=== PATIENT | female | born 1990 | race Hispanic/Latino ===

== ENCOUNTER 2017-10-13 17:48 | Observation (INO) | payer BC, OTHER ==
[~2017-10-13] VITALS: Ht 182.9 cm; Wt 72.2 kg
[~2017-10-13 17:48] MED LIST: ALPRAZOLAM0.5 MG PO; AMBIEN10 MG PO; AMITRIPTYLINE H25 MG PO; BELSOMRA PO; BENTYL20 MG PO; BUPROPION XL150 MG PO; Buspar PO; CIPROFLOXACIN500 M1 PO; CLONIDINE HCL0.1 MG PO; CLONIDINE HCL0.3 MG PO; DOMPERIDONE PO; DOMPERIDONE1 GM PO; FENTANYL1 EAC1 TOP; FLUCONAZOLE150 MG PO; HYDROCODON-ACE1 EA12 PO; K DUR10 MEQ PO; LEXAPRO10 MG PO; LINZESS PO; MAGNESIUM CITR296 ML PO; MICROGESTIN FE1 EAC1; MICROGESTIN FE1 EAC1 PO; MIRALAX17 GM PO; NUCYNTA ER50 MG PO; OXYCODONE-ACET1 EAC1 PO; PAXIL20 MG PO; PERCOCET 10-321 EACH PO; PHENERGAN SUPP25 MG PR; PHENERGAN25 M3 PO; PROMETHAZINE HC25 M1 PO; PYLERA CAPSULE1 EACH PO; TRAZODONE HCL50 MG PO; WELLBUTRIN SR150 MG PO; XANAX0.5 MG PO; Z.0.HYDROCODON-ACE1 PO; Z.0.NEXIUM40 MG PO; Z.0.PANTOPRAZOLE SO4 PO; Z.0.PROMETHAZINE HC2 PO; ZOFRAN ODT4 MG PO; ZOFRAN8 MG PO
--- OUTSIDE RECORDS SUMMARY | 2017-10-13 17:53 | XMS REPORT | Clinical Summary ---
Author Author [facility] Organization [facility] Address Unknown Phone Unavailable Care Team Providers Care Heavy Equipment Operator Apprentice Name Role Phone Arnie De La Rosa MD PCP Allergies Active Allergy Reactions Severity Noted Date Comments Metoclopramide Hcl Other (See Comments) 01/05/2016 Tics Current Medications Prescription Sig. Disp. Refills Start End Date Status Date ALPRAZolam (XANAX) 0.5 MG Take 0.5 mg by mouth 2 0 12/26/19 Active tablet (two) times a day. 16 traZODone (DESYREL) 50 MG Take 50 mg by mouth 0 11/21/19 Active tablet daily. 16 zolpidem (AMBIEN) 10 mg Take 10 mg by mouth Active tablet nightly as needed for sleep. promethazine (PHENERGAN) Insert 25 mg into the Active 25 MG suppository rectum every 6 (six) hours as needed for nausea or vomiting. promethazine (PHENERGAN) TAKE 1 TABLET BY MOUTH 30 tablet 0 11/12/19 Active 25 MG tabletIndications: EVERY 4 HOURS NEEDED 17 Gastroparesis FOR NAUSEA OR VOMITING clonIDINE (CATAPRES) 0.1 Take 1 tablet (0.1 mg 60 tablet 11 01/12/20 01/12/20 MG tablet total) by mouth 2 (two) 16 17 times a day. promethazine (PHENERGAN) TAKE 1 TABLET BY MOUTH 30 tablet 0 10/19/19 11/12/19 Discontin 25 MG tabletIndications: EVERY 4 HOURS NEEDED 17 17 ued Gastroparesis FOR NAUSEA OR VOMITING Active Problems Problem Noted Date Gastroparesis 01/12/2016 Clostridium difficile diarrhea 01/12/2016 Depression (emotion) 01/12/2016 Back pain 01/12/2016 Epigastric pain 01/12/2016 Encounters Date Type Specialty Care Team Description 11/11/2016 Refill Gastroenterology Cheikh Gurrola MD Gastroparesis after 10/12/2016 Social History Tobacco Use Types Packs/Day Years Used Date Never Smoker Alcohol Use Drinks/Week oz/Week Comments No Sex Assigned at Date Recorded Not on file Last Filed Vital Signs Not on file Plan of Treatment Health Maintenance Due Date Last Done Comments PAP SMEAR 2013 INFLUENZA VACCINE 01/18/2018 Results Not on fileafter 10/12/2016 Insurance Payer Benefit Subscriber ID Type Phone Address Plan / Group BCBS BCBS xxxxxxxxxxxx PPO CHOICE PPO/[employer] PPO
--- OUTSIDE RECORDS SUMMARY | 2017-10-13 17:59 | XMS REPORT | Clinical Summary ---
Author Author [facility] Address Unknown Phone Unavailable Care Team Providers Care Cleaning Professional Name Role Phone Arnie De La Rosa [...]
[2017-10-13] MEDS ORDERED: ONDANSETRON HCL INJ 2 MG/ML VIAL IV PRN (18:30)
--- OUTSIDE RECORDS SUMMARY | 2017-10-13 18:42 | XMS REPORT | Clinical Summary ---
Author Author [facility] Address Unknown Phone Unavailable Care Team Providers Care Public Speaking Teacher Name Role Phone Arnie De La Rosa [...]
[2017-10-13 19:35] VITALS: BP 113/55
[2017-10-13] MEDS: SODIUM CHLORIDE 0.9% 1000ML 1,000 ML IV SCH (19:50)
[2017-10-13] MEDS: ONDANSETRON HCL 4 MG ORAL DISINTEGRATING TAB PO PRN (19:56)
[2017-10-13] MEDS: MORPHINE SULFATE 2 MG/ML SYR IV PRN (19:56)
[2017-10-13 22:00] VITALS: BP 113/55
[2017-10-14] VITALS (9 sets, daily range): BP systolic 88–139; BP diastolic 53–81
[2017-10-14] MEDS: MORPHINE SULFATE 2 MG/ML SYR IV PRN ×6 (00:13→21:35)
[2017-10-14] MEDS: ONDANSETRON HCL 4 MG ORAL DISINTEGRATING TAB PO PRN ×2 (00:13→04:25)
--- NOTE | 2017-10-14 00:38 | Diagnostic Imaging Report ---
EXAM: ABDOMEN-1VIEW (KUB) DATE: 10/13/2017 6:25 PM Time stamp on exam: 2308 hours INDICATION: Abdominal pain COMPARISON: None FINDINGS: LINES/TUBES: Jejunostomy tube is visualized overlying the region of the mid abdomen. There is a defibrillator/baclofen pump overlying the right lower abdomen with distal leads at the level of the left T12 vertebral body level. BOWEL PATTERN: No evidence for obstruction. SOFT TISSUES: Cholecystectomy clips are present. LUNG BASES: The lung bases are clear BONES: No acute findings. IMPRESSION: Nonobstructive bowel gas pattern. Signed by: Dr. Shaka Perez M.D. on 10/14/2017 12:34 AM
[2017-10-14] MEDS: SODIUM CHLORIDE 0.9% 1000ML 1,000 ML IV SCH (04:46)
[2017-10-14 05:13] LABS: BASOPHILS % 0.2 % (0.0-1.0); EOSINOPHILS # (AUTO) 0.1 (0.0-0.4); EOSINOPHILS % 1.1 % (0.0-6.0); HEMATOCRIT 31.2 % (34.2-44.1); HEMOGLOBIN 9.8 g/dL (12.0-16.0); LYMPHOCYTES # (AUTO) 3.7 (1.0-3.2); LYMPHOCYTES % 40.3 % (18.0-39.1); MEAN CORPUSCULAR HEMOGLOBIN 22.6 pg (28-32); MEAN CORPUSCULAR HGB CONC 31.4 g/dL (31-35); MEAN CORPUSCULAR VOLUME 71.9 fL (81-99); MONOCYTES # (AUTO) 0.5 (0.2-0.8); MONOCYTES % 5.9 % (4.4-11.3); NEUTROPHILS # (AUTO) 4.8 (2.1-6.9); NEUTROPHILS % 52.3 % (38.7-80.0); PLATELET COUNT 341 x10e3/uL (140-360); RED BLOOD COUNT 4.34 x10e6/uL (3.6-5.1); RED CELL DISTRIBUTION WIDTH 15.9 % (11.7-14.4)
[2017-10-14 05:28] LABS: ALANINE AMINOTRANSFERASE 21 IU/L (0-55); ALBUMIN 3.5 g/dL (3.5-5.0); ALBUMIN/GLOBULIN RATIO 1.1 (0.8-2.0); ALKALINE PHOSPHATASE 131 IU/L (40-150); ANION GAP 11.3 mmol/L (8-16); BLOOD UREA NITROGEN 6 mg/dL (7-26); BUN/CREATININE RATIO 10 (6-25); CALCIUM 9.1 mg/dL (8.4-10.2); CARBON DIOXIDE 24 mmol/L (22-29); CHLORIDE 106 mmol/L (98-107); CREATININE, SERUM 0.62 mg/dL (0.57-1.11); EST GLOMERULAR FILTRATION RATE > 60 ML/MIN (60-); GLUCOSE 92 mg/dL (74-118); POTASSIUM 3.3 mmol/L (3.5-5.1); SODIUM 138 mmol/L (136-145)
[2017-10-14] MEDS ORDERED: PROMETHAZINE 25MG/ NS 50ML (IV) IV PRN (09:30)
[2017-10-14] MEDS: SOD CHL 0.45%/POT CHL 20MEQ 1,000 ML IV SCH ×2 (10:00→21:44)
[2017-10-14] MEDS ORDERED: POTASSIUM CHLORIDE 10 MEQ TABCR PO ONE (10:00)
[2017-10-14] MEDS: PROMETHAZINE 25MG/SOD CHL 0.9% 50 ML IV PRN ×2 (12:47→21:44)
[2017-10-14] MEDS ORDERED: MIDAZOLAM HCL 2 MG/2 ML VIAL IV ONE (20:00)
--- NOTE | 2017-10-14 22:03 | Consultation ---
DATE OF CONSULTATION: October 14, 2017 CHIEF COMPLAINT: Abdominal pain. HISTORY OF PRESENT ILLNESS: The patient is a 27-year-old female with history of gastroparesis, undergoing multiple treatment modalities including pyloroplasty and jejunostomy tube placement several months ago. The patient states the tube has partially come out by accident, but still in there and causing pain and nausea. She otherwise has been tolerating solid food in the last several months. She denies fever, chills, but admits to diarrhea. PAST MEDICAL HISTORY: As mentioned is positive for gastroparesis with frequent admission for intolerance of oral intake requiring initially TPN and recently enteral tube feeding. PAST SURGICAL HISTORY: Positive for multiple endoscopies and pyloroplasty and jejunostomy tube placement 3 months ago. ALLERGIES: THE PATIENT HAS ALLERGIC REACTION TO REGLAN. SOCIAL HABITS: She does not smoke or drink alcohol. REVIEW OF SYSTEMS: No chest pain, shortness of breath, or cough. PHYSICAL EXAMINATION: VITAL SIGNS: Stable, afebrile. GENERAL: She is awake, alert, in moderate discomfort. HEENT: Sclerae anicteric. NECK: Supple. LUNGS: Clear. HEART: Regular rate and rhythm. ABDOMEN: Soft. The left upper quadrant showed a jejunostomy feeding tube, which has been pulled out approximately 5 cm with the tip still in place. EXTREMITIES: Without cyanosis or edema. LABORATORY DATA: White cell count is 9, hemoglobin of 9.8. Creatinine 0.6. Albumin of 3.5. X-ray of the abdomen showed nonobstructive gas pattern. ASSESSMENT: Abdominal pain secondary to partially dislodged jejunostomy feeding tube. PLAN: Removal of J-tube under sedation. Job#: [id number]
--- NOTE | 2017-10-14 22:03 | Operative Report ---
DATE OF PROCEDURE: October 14, 2017 PREOPERATIVE DIAGNOSIS: Gastroparesis. POSTOPERATIVE DIAGNOSIS: Gastroparesis. OPERATIVE PROCEDURE: Removal of jejunostomy tube. ANESTHESIA: Sedation. INDICATIONS: The patient is a 27-year-old female with history of chronic gastroparesis having had a jejunostomy feeding tube placed several months ago. The patient's has consented for removal of jejunostomy tube as it has been dislodged partially causing pain. DESCRIPTION: The patient placed in her hospital bed. IV Versed was given. After which, the tube was cut approximately 3 cm from the skin level and this uncoiled the tip of the jejunostomy feeding tube and using gentle traction, the tube was removed without any mishap. Wound site was covered with gauze and patient tolerated the procedure well. ESTIMATED BLOOD LOSS: Minimal. Job#: [id number] CQ
[2017-10-15] MEDS: MORPHINE SULFATE 2 MG/ML SYR IV PRN ×4 (02:52→17:32)
[2017-10-15 05:10] VITALS: BP 89/54
[2017-10-15 07:47] VITALS: BP 98/56
[2017-10-15] MEDS ORDERED: SODIUM CHLORIDE 0.9% 250ML 250 ML ONE (08:34)
[2017-10-15] MEDS: PROMETHAZINE 25MG/SOD CHL 0.9% 50 ML IV PRN ×3 (08:53→23:50)
[2017-10-15 09:14] VITALS: BP 110/60
[2017-10-15] MEDS: SOD CHL 0.45%/POT CHL 20MEQ 1,000 ML IV SCH ×2 (11:14→16:00)
[2017-10-15 11:16] VITALS: BP 117/64
[2017-10-15 19:40] VITALS: BP 98/69
[2017-10-15 21:50] VITALS: BP 98/69
[2017-10-15] MEDS: KETOROLAC TROMETHAMINE 30 MG/ML VIAL IV PRN (22:00)
[2017-10-16] VITALS: BP 118/70
[2017-10-16] MEDS: SOD CHL 0.45%/POT CHL 20MEQ 1,000 ML IV SCH (03:09)
[2017-10-16 05:30] VITALS: BP 88/55
[2017-10-16] MEDS: PROMETHAZINE 25MG/SOD CHL 0.9% 50 ML IV PRN (06:37)
[2017-10-16] MEDS: KETOROLAC TROMETHAMINE 30 MG/ML VIAL IV PRN (06:37)
[2017-10-16 07:59] VITALS: BP 101/65
[2017-10-16 08:10] VITALS: BP 101/65
--- NOTE | 2017-10-16 19:14 | Discharge Summary ---
FINAL DIAGNOSES 1. Complication of feeding tube dislodged and now, status post removal of a jejunostomy feeding tube. 2. Abdominal pain, much improved. 3. Status post dehydration. 4. Electrolyte disorder, corrected. SUMMARY: A 27-year-old female, who came in with a feeding tube usp out. The patient subsequently had feeding tube removal. She has a very sensitive abdominal problem with gastroparesis. She is stable now. She will be discharged home today. Resume home medication. She will be followed as an outpatient. The patient stable for discharge. Job#: [id number] CQ
== END 2017-10-16 11:59 | disposition home or self-care (01) ==
LOC: ER 17:56 → ERHOLD 18:39 → IMCU 19:00
PROVIDERS: ADMIT Internal Medicine; ATTEND Internal Medicine
DX: Z43.4 Encounter for attention to other artificial openings of digestive tract (principal); E86.0 Dehydration; K31.84 Gastroparesis; E87.8 Other disorders of electrolyte and fluid balance, not elsewhere classified
CPT/HCPCS: 36415; 74018; 80053; 81025; 85025; 87493; 99283; G0378 ×4; J1642; J1885 ×2; J2250; J2270 ×3; J2550 ×3; J7030 ×2; J7050

== ENCOUNTER 2021-12-26 13:20 | Inpatient (IN) | payer BC, OTHER ==
[~2021-12-26] VITALS: Ht 149.9 cm; Wt 59.0 kg
[~2021-12-26 13:20] MED LIST changes: +SODIUM CHLORIDE FLUSH 10 ML SYR IV PRN
[2021-12-26] MEDS ORDERED: FAMOTIDINE 20 MG/2 ML VIAL IV ONE (13:45)
[2021-12-26] MEDS ORDERED: ONDANSETRON HCL INJ 2MG/ML 2ML 2 MG/ML VIAL IV ONE (13:45)
[2021-12-26] MEDS: SODIUM CHLORIDE 0.9% 1000ML 1,000 ML IV SCH (13:50)
[2021-12-26 14:00] LABS: BASOPHILS % 0.2 % (0.0-1.0); EOSINOPHILS % 0.4 % (0.0-6.0); HEMATOCRIT 41.4 % (34.2-44.1); HEMOGLOBIN 12.8 g/dL (12.0-16.0); LYMPHOCYTES # (AUTO) 0.9 (1.0-3.2); LYMPHOCYTES % 16.9 % (18.0-39.1); MEAN CORPUSCULAR HEMOGLOBIN 27.8 pg (28-32); MEAN CORPUSCULAR HGB CONC 30.9 g/dL (31-35); MONOCYTES # (AUTO) 0.4 (0.2-0.8); MONOCYTES % 7.4 % (4.4-11.3); NEUTROPHILS % 74.7 % (38.7-80.0); PLATELET COUNT 310 x10e3/uL (140-360); RED CELL DISTRIBUTION WIDTH 13.3 % (11.7-14.4)
[2021-12-26 14:20] LABS: AMPHETAMINES SCREEN,URINE NEGATIVE (NEGATIVE); BENZODIAZEPINES SCREEN,URINE NEGATIVE (NEGATIVE); PHENCYCLIDINE SCREEN,URINE NEGATIVE (NEGATIVE)
[2021-12-26 14:21] LABS: CLARITY,URINE CLOUDY (CLEAR); COLOR,URINE YELLOW (YELLOW); KETONES,URINE NEGATIVE (NEGATIVE); LEUKOCYTE ESTERASE ,URINE NEGATIVE (NEGATIVE); NITRITE,URINE NEGATIVE (NEGATIVE); PROTEIN,URINE DIPSTICK NEGATIVE (NEGATIVE); URINE UROBILINOGEN 1 mg/dL (0.2 - 1)
[2021-12-26 14:22] LABS: INR 0.92; PARTIAL THROMBOPLASTIN TIME 29.5 seconds (23.8-35.5); PROTHROMBIN TIME 13.2 seconds (11.9-14.5)
[2021-12-26 14:29] LABS: LIPASE 9 U/L (8-78)
[2021-12-26 14:30] LABS: AMORPHOUS SEDIMENT,URINE MANY (FEW); BACTERIA,URINE MANY /HPF; EPITHELIAL CELLS,URINE MODERATE /LPF; MUCUS,URINE MANY (RARE); RBC,URINE 21-50 /HPF (0-5)
[2021-12-26 14:32] LABS: ALBUMIN 3.7 g/dL (3.5-5.0); ALBUMIN/GLOBULIN RATIO 0.9 (0.8-2.0); CALCIUM 9.2 mg/dL (8.4-10.2); CREATININE, SERUM 0.67 mg/dL (0.57-1.11)
[2021-12-26] MEDS ORDERED: SODIUM CHLORIDE 0.9% 1000ML 1,000 ML IV SCH ×2 (15:30→20:15)
[2021-12-26] MEDS: PROMETHAZINE 25MG/ NS 50ML (IV) IV PRN ×2 (15:38→23:11)
[2021-12-26] MEDS: FAMOTIDINE 20 MG/2 ML VIAL IV SCH (17:45)
[2021-12-26 18:18] VITALS: BP 111/60
[2021-12-26 18:26] VITALS: BP 111/60
[2021-12-26 18:30] VITALS: BP 111/60
[2021-12-26 20:00] VITALS: BP 109/68
[2021-12-26] MEDS: ONDANSETRON HCL INJ 2MG/ML 2ML 2 MG/ML VIAL IV PRN (20:16)
[2021-12-26] MEDS: Morphine 4mg INJECTION 4 MG/ML INJ IV PRN ×2 (20:16→23:11)
[2021-12-27] VITALS (8 sets, daily range): BP systolic 92–112; BP diastolic 54–63
[2021-12-27] MEDS: SODIUM CHLORIDE 0.9% 1000ML 1,000 ML IV SCH ×2 (02:50→14:10)
[2021-12-27] MEDS: Morphine 4mg INJECTION 4 MG/ML INJ IV PRN ×7 (02:51→23:40)
[2021-12-27] MEDS: ONDANSETRON HCL INJ 2MG/ML 2ML 2 MG/ML VIAL IV PRN ×4 (02:51→20:12)
[2021-12-27 07:37] LABS: BASOPHILS % 0.5 % (0.0-1.0); EOSINOPHILS # (AUTO) 0.1 (0.0-0.4); HEMOGLOBIN 10.3 g/dL (12.0-16.0); LYMPHOCYTES # (AUTO) 1.8 (1.0-3.2); LYMPHOCYTES % 41.4 % (18.0-39.1); MEAN CORPUSCULAR HEMOGLOBIN 28.1 pg (28-32); MEAN CORPUSCULAR HGB CONC 31.2 g/dL (31-35); MEAN CORPUSCULAR VOLUME 90.2 fL (81-99); MONOCYTES # (AUTO) 0.5 (0.2-0.8); MONOCYTES % 12.3 % (4.4-11.3); NEUTROPHILS # (AUTO) 1.8 (2.1-6.9); NEUTROPHILS % 42.6 % (38.7-80.0); PLATELET COUNT 238 x10e3/uL (140-360); RED BLOOD COUNT 3.66 x10e6/uL (3.6-5.1); RED CELL DISTRIBUTION WIDTH 13.3 % (11.7-14.4)
[2021-12-27 08:09] LABS: ALBUMIN 2.8 g/dL (3.5-5.0); ALBUMIN/GLOBULIN RATIO 1.1 (0.8-2.0); ANION GAP 9.8 mmol/L (8-16); CALCIUM 7.7 mg/dL (8.4-10.2); CREATININE, SERUM 0.62 mg/dL (0.57-1.11); POTASSIUM 3.8 mmol/L (3.5-5.1)
[2021-12-27] MEDS: FAMOTIDINE 20 MG/2 ML VIAL IV SCH ×2 (08:26→17:13)
[2021-12-27] MEDS: PROMETHAZINE 25MG/ NS 50ML (IV) IV PRN ×3 (09:17→23:40)
[2021-12-27] MEDS: GABAPENTIN 100 MG CAP PO SCH ×2 (15:00→20:12)
[2021-12-27] MEDS: DRONABINOL 2.5MG PO SCH (16:30)
[2021-12-27] MEDS ORDERED: TRAZODONE HCL 50 MG TAB PO PRN (21:00)
[2021-12-28] VITALS (9 sets, daily range): BP systolic 90–112; BP diastolic 47–66
[2021-12-28] MEDS: SODIUM CHLORIDE 0.9% 1000ML 1,000 ML IV SCH ×3 (00:44→18:01)
[2021-12-28] MEDS: Morphine 4mg INJECTION 4 MG/ML INJ IV PRN ×7 (03:34→23:16)
[2021-12-28] MEDS: ONDANSETRON HCL INJ 2MG/ML 2ML 2 MG/ML VIAL IV PRN ×3 (03:34→20:06)
[2021-12-28] MEDS: PROMETHAZINE 25MG/ NS 50ML (IV) IV PRN ×3 (06:52→23:15)
[2021-12-28] MEDS: DRONABINOL 2.5MG PO SCH ×2 (07:51→16:57)
[2021-12-28] MEDS: FAMOTIDINE 20 MG/2 ML VIAL IV SCH ×2 (08:56→16:57)
[2021-12-28] MEDS: GABAPENTIN 100 MG CAP PO SCH ×3 (08:57→20:05)
[2021-12-29] VITALS (9 sets, daily range): BP systolic 92–117; BP diastolic 51–83
[2021-12-29] MEDS: ONDANSETRON HCL INJ 2MG/ML 2ML 2 MG/ML VIAL IV PRN ×4 (02:26→22:53)
[2021-12-29] MEDS: Morphine 4mg INJECTION 4 MG/ML INJ IV PRN ×7 (02:38→22:53)
[2021-12-29] MEDS: SODIUM CHLORIDE 0.9% 1000ML 1,000 ML IV SCH ×3 (05:54→19:50)
[2021-12-29] MEDS: PROMETHAZINE 25MG/ NS 50ML (IV) IV PRN ×3 (05:55→19:50)
[2021-12-29] MEDS ORDERED: Morphine 2mg Syringe 2 MG/ML SYR ONE (06:01)
[2021-12-29] MEDS: DRONABINOL 2.5MG PO SCH ×2 (08:46→16:08)
[2021-12-29] MEDS: GABAPENTIN 100 MG CAP PO SCH ×3 (08:48→19:49)
[2021-12-30] VITALS (8 sets, daily range): BP systolic 101–107; BP diastolic 53–62
[2021-12-30] MEDS: Morphine 4mg INJECTION 4 MG/ML INJ IV PRN ×7 (03:21→22:16)
[2021-12-30] MEDS: PROMETHAZINE 25MG/ NS 50ML (IV) IV PRN ×4 (03:21→22:16)
[2021-12-30] MEDS: ONDANSETRON HCL INJ 2MG/ML 2ML 2 MG/ML VIAL IV PRN ×3 (06:57→19:00)
[2021-12-30] MEDS: SODIUM CHLORIDE 0.9% 1000ML 1,000 ML IV SCH ×2 (06:58→17:50)
[2021-12-30] MEDS: DRONABINOL 2.5MG PO SCH ×2 (07:30→16:06)
[2021-12-30] MEDS: GABAPENTIN 100 MG CAP PO SCH ×3 (08:02→21:00)
[2021-12-31] VITALS: BP 101/53
[2021-12-31] MEDS: Morphine 4mg INJECTION 4 MG/ML INJ IV PRN ×6 (01:41→22:00)
[2021-12-31] MEDS: ONDANSETRON HCL INJ 2MG/ML 2ML 2 MG/ML VIAL IV PRN ×6 (01:41→21:58)
[2021-12-31 04:00] VITALS: BP 90/67
[2021-12-31] MEDS: PROMETHAZINE 25MG/ NS 50ML (IV) IV PRN ×2 (04:41→20:53)
[2021-12-31] MEDS: SODIUM CHLORIDE 0.9% 1000ML 1,000 ML IV SCH ×2 (04:42→15:38)
[2021-12-31] MEDS: DRONABINOL 2.5MG PO SCH ×2 (07:43→15:38)
[2021-12-31] MEDS: GABAPENTIN 100 MG CAP PO SCH ×3 (08:00→20:54)
[2021-12-31 08:23] VITALS: BP 91/63
[2021-12-31 11:10] VITALS: BP 93/64
[2021-12-31 15:31] VITALS: BP 95/66
[2021-12-31 20:00] VITALS: BP 105/60
[2022-01-01] VITALS (10 sets, daily range): BP systolic 95–107; BP diastolic 49–69
[2022-01-01] MEDS: ONDANSETRON HCL INJ 2MG/ML 2ML 2 MG/ML VIAL IV PRN ×5 (01:21→22:30)
[2022-01-01] MEDS: Morphine 4mg INJECTION 4 MG/ML INJ IV PRN ×9 (01:21→22:30)
[2022-01-01] MEDS: SODIUM CHLORIDE 0.9% 1000ML 1,000 ML IV SCH ×4 (01:33→22:29)
[2022-01-01] MEDS: PROMETHAZINE 25MG/ NS 50ML (IV) IV PRN ×3 (04:32→19:30)
[2022-01-01] MEDS: DRONABINOL 2.5MG PO SCH ×2 (08:00→17:00)
[2022-01-01] MEDS: GABAPENTIN 100 MG CAP PO SCH ×3 (09:00→20:49)
[2022-01-02] VITALS (7 sets, daily range): BP systolic 98–110; BP diastolic 57–64
[2022-01-02] MEDS: PROMETHAZINE 25MG/ NS 50ML (IV) IV PRN ×4 (01:30→21:35)
[2022-01-02] MEDS: Morphine 4mg INJECTION 4 MG/ML INJ IV PRN ×7 (01:30→21:37)
[2022-01-02] MEDS: ONDANSETRON HCL INJ 2MG/ML 2ML 2 MG/ML VIAL IV PRN ×3 (04:50→18:22)
[2022-01-02] MEDS: DRONABINOL 2.5MG PO SCH ×2 (08:10→16:30)
[2022-01-02] MEDS: GABAPENTIN 100 MG CAP PO SCH (08:15)
[2022-01-02] MEDS: SODIUM CHLORIDE 0.9% 1000ML 1,000 ML IV SCH ×2 (09:59→21:39)
[2022-01-02] MEDS ORDERED: CYANOCOBALAMIN INJ 1,000 MCG/ML VIAL IM NR (10:15)
[2022-01-02] MEDS ORDERED: FOLIC ACID 1 MG TAB PO NR (10:15)
[2022-01-02] MEDS: GABAPENTIN 300 MG CAP PO SCH ×2 (15:50→21:38)
[2022-01-02] MEDS ORDERED: DRONABINOL 2.5MG PO SCH (16:30)
[2022-01-03] VITALS (7 sets, daily range): BP systolic 91–100; BP diastolic 54–61
[2022-01-03] MEDS: ONDANSETRON HCL INJ 2MG/ML 2ML 2 MG/ML VIAL IV PRN ×3 (02:58→20:24)
[2022-01-03] MEDS: Morphine 4mg INJECTION 4 MG/ML INJ IV PRN ×6 (02:58→20:24)
[2022-01-03] MEDS: PROMETHAZINE 25MG/ NS 50ML (IV) IV PRN ×2 (06:21→09:45)
[2022-01-03] MEDS: SODIUM CHLORIDE 0.9% 1000ML 1,000 ML IV SCH ×2 (06:22→15:15)
[2022-01-03] MEDS: DRONABINOL 2.5MG PO SCH ×2 (08:59→17:00)
[2022-01-03] MEDS: GABAPENTIN 300 MG CAP PO SCH ×3 (09:00→20:31)
[2022-01-03] MEDS: CYANOCOBALAMIN INJ 1,000 MCG/ML VIAL IM SCH (09:00)
[2022-01-03] MEDS: FOLIC ACID 1 MG TAB PO SCH (09:00)
[2022-01-04] VITALS (7 sets, daily range): BP systolic 97–109; BP diastolic 52–71
[2022-01-04] MEDS: PROMETHAZINE 25MG/ NS 50ML (IV) IV PRN ×4 (00:26→22:26)
[2022-01-04] MEDS: Morphine 4mg INJECTION 4 MG/ML INJ IV PRN ×7 (00:27→22:26)
[2022-01-04] MEDS: ONDANSETRON HCL INJ 2MG/ML 2ML 2 MG/ML VIAL IV PRN ×2 (04:59→12:05)
[2022-01-04] MEDS: SODIUM CHLORIDE 0.9% 1000ML 1,000 ML IV SCH ×3 (05:00→22:23)
[2022-01-04 06:56] LABS: BASOPHILS % 0.4 % (0.0-1.0); EOSINOPHILS # (AUTO) 0.3 (0.0-0.4); HEMATOCRIT 32.5 % (34.2-44.1); HEMOGLOBIN 10.5 g/dL (12.0-16.0); LYMPHOCYTES # (AUTO) 2.5 (1.0-3.2); LYMPHOCYTES % 37.4 % (18.0-39.1); MEAN CORPUSCULAR HEMOGLOBIN 27.8 pg (28-32); MEAN CORPUSCULAR HGB CONC 32.3 g/dL (31-35); MONOCYTES # (AUTO) 0.6 (0.2-0.8); MONOCYTES % 8.6 % (4.4-11.3); NEUTROPHILS # (AUTO) 3.3 (2.1-6.9); NEUTROPHILS % 48.3 % (38.7-80.0); PLATELET COUNT 352 x10e3/uL (140-360); RED BLOOD COUNT 3.78 x10e6/uL (3.6-5.1)
[2022-01-04 07:16] LABS: ALBUMIN 2.9 g/dL (3.5-5.0); ANION GAP 14.9 mmol/L (8-16); CALCIUM 7.5 mg/dL (8.4-10.2); CREATININE, SERUM 0.63 mg/dL (0.57-1.11); MAGNESIUM 1.7 MG/DL (1.3-2.1); PHOSPHORUS 3.3 MG/DL (2.3-4.7); POTASSIUM 3.9 mmol/L (3.5-5.1)
[2022-01-04] MEDS: DRONABINOL 2.5MG PO SCH ×2 (08:39→15:43)
[2022-01-04] MEDS: FOLIC ACID 1 MG TAB PO SCH (08:40)
[2022-01-04] MEDS: CYANOCOBALAMIN INJ 1,000 MCG/ML VIAL IM SCH (08:42)
[2022-01-04] MEDS: GABAPENTIN 300 MG CAP PO SCH ×3 (08:43→22:24)
[2022-01-05] VITALS (10 sets, daily range): BP systolic 92–172; BP diastolic 55–63
[2022-01-05] MEDS: ONDANSETRON HCL INJ 2MG/ML 2ML 2 MG/ML VIAL IV PRN ×4 (01:45→22:47)
[2022-01-05] MEDS: Morphine 4mg INJECTION 4 MG/ML INJ IV PRN ×7 (01:46→22:47)
[2022-01-05] MEDS: PROMETHAZINE 25MG/ NS 50ML (IV) IV PRN ×3 (04:56→19:27)
[2022-01-05] MEDS: SODIUM CHLORIDE 0.9% 1000ML 1,000 ML IV SCH ×3 (08:00→22:50)
[2022-01-05] MEDS: GABAPENTIN 300 MG CAP PO SCH ×3 (08:00→22:47)
[2022-01-05] MEDS: FOLIC ACID 1 MG TAB PO SCH (08:00)
[2022-01-05] MEDS: DRONABINOL 2.5MG PO SCH ×2 (08:00→15:45)
[2022-01-05] MEDS: CELECOXIB 200 MG CAP PO SCH ×2 (09:30→17:30)
[2022-01-05] MEDS ORDERED: ALTEPLASE RECOMBINANT 2 MG/2 ML VIAL IV ONE (12:00)
[2022-01-06] VITALS (9 sets, daily range): BP systolic 90–99; BP diastolic 54–60
[2022-01-06] MEDS: Morphine 4mg INJECTION 4 MG/ML INJ IV PRN ×6 (03:30→23:06)
[2022-01-06] MEDS: PROMETHAZINE 25MG/ NS 50ML (IV) IV PRN ×3 (03:30→23:06)
[2022-01-06] MEDS: ONDANSETRON HCL INJ 2MG/ML 2ML 2 MG/ML VIAL IV PRN (06:30)
[2022-01-06] MEDS: CELECOXIB 200 MG CAP PO SCH ×2 (08:20→17:50)
[2022-01-06] MEDS: DRONABINOL 2.5MG PO SCH ×2 (08:20→16:30)
[2022-01-06] MEDS: FOLIC ACID 1 MG TAB PO SCH (08:21)
[2022-01-06] MEDS: GABAPENTIN 300 MG CAP PO SCH ×3 (08:21→19:55)
[2022-01-06] MEDS: SODIUM CHLORIDE 0.9% 1000ML 1,000 ML IV SCH ×2 (09:00→19:55)
[2022-01-07] MEDS: Morphine 4mg INJECTION 4 MG/ML INJ IV PRN ×3 (03:22→10:32)
[2022-01-07] MEDS: ONDANSETRON HCL INJ 2MG/ML 2ML 2 MG/ML VIAL IV PRN (03:22)
[2022-01-07 04:00] VITALS: BP 94/49
[2022-01-07] MEDS: PROMETHAZINE 25MG/ NS 50ML (IV) IV PRN (07:20)
[2022-01-07] MEDS: DRONABINOL 2.5MG PO SCH (07:30)
[2022-01-07 08:01] VITALS: BP 102/57
[2022-01-07] MEDS: GABAPENTIN 300 MG CAP PO SCH (09:41)
[2022-01-07] MEDS: CELECOXIB 200 MG CAP PO SCH (09:41)
[2022-01-07] MEDS: FOLIC ACID 1 MG TAB PO SCH (09:41)
[2022-01-07] MEDS ORDERED: ONDANSETRON HCL INJ 2MG/ML 2ML 2 MG/ML VIAL IV STA (10:18)
[2022-01-07] MEDS ORDERED: HEPARIN 500 UNITS/5ML MDV INJ ONE (11:00)
[2022-01-07 11:39] VITALS: BP 111/59
== END 2022-01-07 11:41 | disposition home or self-care (01) | DRG 392 ==
LOC: ER 13:25 → ERHOLD 15:20 → MED/SURG3 17:58
PROVIDERS: ADMIT Internal Medicine; ATTEND Internal Medicine
DX: K31.84 Gastroparesis (principal); N39.0 Urinary tract infection, site not specified; E86.0 Dehydration; F41.9 Anxiety disorder, unspecified; Z20.822 Contact with and (suspected) exposure to COVID-19; K58.9 Irritable bowel syndrome, unspecified; K21.9 Gastro-esophageal reflux disease without esophagitis; Z90.49 Acquired absence of other specified parts of digestive tract; Z96.82 Presence of neurostimulator
CPT/HCPCS: 0223U; 36415; 80053; 80307; 81001; 83690; 83735; 84100; 84702; 85025; 85610; 85730; 99284; J0696; J2270; J2405; J2550; J2997; J3420; J7030